=== PATIENT | male | born 1945 | race Caucasian/White ===

== ENCOUNTER 2017-02-05 11:59 | Inpatient (IN) | payer OTHER ==
[2017-02-05] VITALS (9 sets, daily range): BP systolic 147–164; BP diastolic 80–88; PULSE 62–98; TEMP 36.8–37.5; O2SAT 96–99; Ht 185.4 cm; Wt 91.0 kg
[~2017-02-05] VITALS: Ht 185.4 cm; Wt 91.0 kg
[2017-02-05] MEDS ORDERED: ASPI81TA28 PO (12:21)
[2017-02-05] MEDS ORDERED: LOSA1TAB PO (12:21)
[2017-02-05] MEDS ORDERED: PANT40TA PO (12:21)
[2017-02-05] MEDS ORDERED: LIDOCAINE HCL 2% VISC SOLN 20 ML UDC MT STA (12:45)
[2017-02-05] MEDS ORDERED: ALUMINUM/MAGNESIUM SUSP 30 ML UDC PO STA (12:45)
[2017-02-05] MEDS ORDERED: SODIUM CHLORIDE 0.9% 1000ML 1,000 ML IV STA (12:45)
[2017-02-05] MEDS ORDERED: SODIUM CHLORIDE 0.9% 1000ML 250 ML IV STA (12:45)
--- NOTE | 2017-02-05 12:52 | EMERGENCY ROOM VISIT NOTE ---
History Report prepared by Aron: Irlanda Mathur Under the Supervision of: Dr. Nghia Garrido M.D. First contact with patient: 12:23 Chief Complaint: CHEST PAIN Stated Complaint: CHEST PAIN,SWEATING,NUMBNESS Nursing Triage Summary: chest pain substernal and lower back and diaphoresis that started this am that got worse no SOB History of Present Illness The patient is a 71 year old male who presents to the Emergency Room with complaints of constant chest pain beginning 6 hours ago this morning. The patient states that he has GI history and has a lot of burping regularly. He notes that when he woke up this morning he had chest pressure and back pain that was worsened by his burping. He reports that he had diaphoresis and decided to come into the ED. The patient complains of nausea, some abdominal pain, intermittent cough, and tingling in the bilateral hands. He denies any vomiting, changes in bowel movements, fever, chills, trauma, leg pain,and leg swelling. The patient states that he has had normal stress test 7 years ago, endoscopy, and cystoscopy. Source of History: patient Onset: 6 hours ago Position: chest Timing: constant Associated Symptoms: + cough, + nausea, + abdominal pain, No fevers, No chills, No vomiting Note: The patient complains of tingling in the bilateral hands. He denies any changes in bowel movements, trauma, leg pain,and leg swelling. Review of Systems See HPI for pertinent positives & negatives. A total of 10 systems reviewed and were otherwise negative. Past Medical & Surgical Medical Problems: (1) GERD (gastroesophageal reflux disease) (2) Hernia (3) HTN (hypertension) Old medical records were attempted to be reviewed but there are no old records at this hospital. Nurse's notes were reviewed and I agree with. Family History No pertinent family history stated. Social History Smoking Status: Never Smoker Smokeless Tobacco Use: No Alcohol Use: occasionally Drug Use: none Marital Status: Housing Status: lives with significant other Current/Historical Medications Scheduled Aspirin (Aspirin Ec), 81 MG PO DAILY Losartan Potassium (Cozaar), 25 MG PO DAILY Pantoprazole (Protonix), 40 MG PO DAILY Allergies Coded Allergies: Epinephrine (Unverified Allergy, Intermediate, raised HR, 02/05/17) Physical Exam Vital Signs Date Time Temp Pulse Resp B/P (MAP) Pulse Ox O2 Delivery O2 Flow Rate FiO2 8/7/17 16:28 37 66 16 148/77 (100) 97 Room Air 02/05/17 16:20 63 18 146/79 97 02/05/17 15:27 63 18 146/79 97 Room Air 02/05/17 13:40 59 20 140/79 98 Room Air 02/05/17 13:03 127/75 02/05/17 12:59 55 17 97 02/05/17 12:29 55 18 02/05/17 12:24 58 02/05/17 12:08 136/76 02/05/17 12:08 36.6 57 16 136/76 100 Room Air Physical Exam General: Well developed well nourished older male in no acute distress, breathing comfortably on room air. Normal speech HEENT: Normal cephalic atraumatic. Pupils are equal round and reactive to light. Extraocular movements are intact. Oropharynx is pink with moist mucous membranes. No swelling of the mouth lips or tongue. Neck: Supple with a midline trachea. No meningeal signs or stiffness, no JVD or bruits. No Stridor. Chest: Clear to auscultation bilaterally. No wheezes or rhonchi. No increased work of breathing. Heart: regular rate and rhythm. Abdomen: Soft, nondistended without rebound guarding or rigidity. Minimal tenderness in lower chest/epigastric area. Extremities: No cyanosis clubbing or edema. No calf tenderness or assymetry Spine/Back. Non tender to palpation. No CVA tenderness Skin: Good turgor without rashes. Neurologic exam: Cranial nerves two through 12 are intact. Motor and sensation are intact and symmetrical throughout. Medical Decision & Procedures ER Provider Diagnostic Interpretation: Radiology results as stated below per my review and radiologist interpretation: CHEST ONE VIEW PORTABLE FINDINGS: The cardiac and mediastinal contours are normal. There is no evidence of focal pulmonary consolidation. There is no evidence of failure. No pleural effusions are visualized.[ There are minor left basilar atelectatic changes. IMPRESSION: No active disease in the chest. Electronically signed by: Joseph Buckley M.D. 02/05/2017 1:27 PM Dictated Date/Time: 02/05/2017 1:27 PM CHEST COMBO ANGIO DISSECTION FINDINGS: The caliber of the thoracic aorta is normal. There is no evidence of intramural hematoma or thoracic aortic dissection. The size of the heart is at the upper limits of normal. There is no pericardial effusion. No enlarged thoracic lymph nodes are present. There are multiple calcified pulmonary nodules which are benign. There are a few tiny noncalcified pulmonary nodules which are likely benign as well. No pneumothorax or pleural effusion is present. Groundglass opacities reflect atelectasis. Bony thorax is unremarkable. Abdomen and pelvis will be reported separately. IMPRESSION: 1. No thoracic aortic dissection. 2. No acute intrathoracic findings. Electronically signed by: Michoacano Valle M.D. 02/05/2017 3:20 PM Dictated Date/Time: 02/05/2017 3:11 PM ABDOMEN AND PELVIS CTA COMPARISON STUDY: None. FINDINGS: Normal caliber abdominal aorta with no evidence for dissection. The mesenteric and renal arteries are widely patent. The bilateral iliac arteries are normal in caliber. Mild dependent changes seen at the lung bases. Hepatic steatosis. A few scattered hypodense lesions within the liver with the largest in the left hepatic lobe measuring 2 cm. These likely represent cysts. A 2.8 cm heterogeneous enhancing lesion within the splenic dome. The adrenal glands and pancreas are unremarkable. Normal right kidney. 4 mm hypodense lesion within the lower pole the left kidney is too small to characterize. Gallbladder is mildly distended. There is mild pericholecystic inflammatory change. Best seen on the noncontrast imaging there are 2 stones within the neck/cystic duct measuring approximately 4 mm. Therefore, these findings are consistent with acute cholecystitis. No retroperitoneal lymphadenopathy. Normal bladder. The prostate gland is mildly enlarged. Colonic diverticulosis. No bowel wall thickening or obstruction. Normal appendix. IMPRESSION: 1. Normal abdominal aorta. No evidence for dissection. 2. Distended gallbladder with 2 stones at the gallbladder neck/cystic duct. There is associated pericholecystic inflammatory change. Therefore, this is consistent with acute cholecystitis. 3. No bowel wall thickening or obstruction. 4. Colonic diverticulosis. 5. Enlarged prostate. 6. Indeterminate 2.8 cm heterogeneous enhancing lesion within the splenic dome. Electronically signed by: Talha Headley M.D. 02/05/2017 3:21 PM Dictated Date/Time: 02/05/2017 3:11 PM Laboratory Results 02/05/17 12:30 Red Blood Count 5.28, Mean Corpuscular Volume 92.4, Mean Corpuscular Hemoglobin 30.1, Mean Corpuscular Hemoglobin Concent 32.6, Mean Platelet Volume 9.8, Neutrophils (%) (Auto) 86.1, Lymphocytes (%) (Auto) 7.7, Monocytes (%) (Auto) 5.5, Eosinophils (%) (Auto) 0.3, Basophils (%) (Auto) 0.1, Neutrophils # (Auto) 11.92, Lymphocytes # (Auto) 1.06, Monocytes # (Auto) 0.76, Eosinophils # (Auto) 0.04, Basophils # (Auto) 0.02 02/05/17 12:30 Test 02/05/17 12:30 02/05/17 12:58 White Blood Count 13.84 K/uL (4.8-10.8) Red Blood Count 5.28 M/uL (4.7-6.1) Hemoglobin 15.9 g/dL (14.0-18.0) Hematocrit 48.8 % (42-52) Mean Corpuscular Volume 92.4 fL (80-100) Mean Corpuscular Hemoglobin 30.1 pg (25-34) Mean Corpuscular Hemoglobin Concent 32.6 g/dl (32-36) Platelet Count 218 K/uL (130-400) Mean Platelet Volume 9.8 fL (7.4-10.4) Neutrophils (%) (Auto) 86.1 % Lymphocytes (%) (Auto) 7.7 % Monocytes (%) (Auto) 5.5 % Eosinophils (%) (Auto) 0.3 % Basophils (%) (Auto) 0.1 % Neutrophils # (Auto) 11.92 K/uL (1.4-6.5) Lymphocytes # (Auto) 1.06 K/uL (1.2-3.4) Monocytes # (Auto) 0.76 K/uL (0.11-0.59) Eosinophils # (Auto) 0.04 K/uL (0-0.5) Basophils # (Auto) 0.02 K/uL (0-0.2) RDW Standard Deviation 43.8 fL (36.4-46.3) RDW Coefficient of Variation 12.9 % (11.5-14.5) Immature Granulocyte % (Auto) 0.3 % Immature Granulocyte # (Auto) 0.04 K/uL (0.00-0.02) Prothrombin Time 11.5 SECONDS (9.0-12.0) Prothromb Time International Ratio 1.1 (0.9-1.1) Activated Partial Thromboplast Time 26.8 SECONDS (21.0-31.0) Partial Thromboplastin Ratio 1.0 Anion Gap 6.0 mmol/L (3-11) Est Creatinine Clear Calc Drug Dose 86.3 ml/min Estimated GFR () 99.9 Estimated GFR (Non- 86.2 BUN/Creatinine Ratio 18.1 (10-20) Calcium Level 8.3 mg/dl (8.5-10.1) Total Bilirubin 0.5 mg/dl (0.2-1) Direct Bilirubin 0.1 mg/dl (0-0.2) Aspartate Amino Transf (AST/SGOT) 15 U/L (15-37) Alanine Aminotransferase (ALT/SGPT) 20 U/L (12-78) Alkaline Phosphatase 58 U/L (45-117) Total Creatine Kinase 108 U/L (39-308) Creatine Kinase MB 1.7 ng/ml (0.5-3.6) Creatine Kinase MB Ratio 1.6 (0-3.0) Total Protein 6.8 gm/dl (6.4-8.2) Albumin 3.5 gm/dl (3.4-5.0) Lipase 84 U/L (73-393) Bedside Troponin I < 0.030 ng/ml (0-0.045) Laboratory studies as stated above per my review. Medications Administered Medications (Trade) Dose Ordered Sig/Teresa Route Start Time Stop Time Status Last Admin Dose Admin Sodium Chloride 250 ml @ 999 mls/hr Q16M STAT IV 02/05/17 12:45 02/05/17 13:00 DC 02/05/17 13:00 999 MLS/HR Sodium Chloride 1,000 ml @ 100 mls/hr Q10H STAT IV 02/05/17 12:45 02/05/17 22:44 02/05/17 13:00 100 MLS/HR Al Hydroxide/Mg Hydroxide (Maalox Susp) 30 ml NOW STAT PO 02/05/17 12:45 02/05/17 12:48 DC 02/05/17 12:58 30 ML Lidocaine HCl (Viscous Lidocaine 2% Soln) 10 ml NOW STAT MT 02/05/17 12:45 02/05/17 12:48 DC 02/05/17 12:58 10 ML Morphine Sulfate (MoRPHine SULFATE INJ) 4 mg NOW STAT IV 02/05/17 13:43 02/05/17 13:45 DC 02/05/17 13:56 4 MG Ondansetron HCl (Zofran Inj) 4 mg NOW STAT IV 02/05/17 13:43 02/05/17 13:45 DC 02/05/17 13:55 4 MG Piperacillin Sod/ Tazobactam Sod (Zosyn Iv) 4.5 gm NOW STAT IV 02/05/17 15:40 02/05/17 15:42 DC 02/05/17 15:51 4.5 GM Morphine Sulfate (MoRPHine SULFATE INJ) 2 mg NOW STAT IV 02/05/17 15:41 02/05/17 15:42 DC 02/05/17 15:52 2 MG ECG Indication: chest pain Rate (beats per minute): 53 Rhythm: sinus bradycardia Findings: RBBB, no acute ischemic change, no ectopy Comparison ECG Date: no prior available Change: EKG #2: Sinus bradycardia 53 incomplete RBBB, no ischemic changes, no significant changes compared to EKG 1. ED Course 1223: Past medical records reviewed. The patient was evaluated in room C4, and a complete history and physical examination were performed. 1245: Lidocaine HCl 10ml MT, Maalox Susp 30ml PO, Sodium Chloride 1000 ml @ 100 mls/hr IV, Sodium Chloride 250 ml @ 999 mls/hr IV. 1342: I reevaluated and updated the patient. He is having more chest and back pain. He complains of some abdominal pain. 1343: Morphine Sulfate 4mg IV, Zofran Inj 4mg IV. 1418: I reevaluated and updated the patient. 1504: I reevaluated the patient and he is resting comfortably. 1540: Zosyn IV 4.5 gm IV, Morphine Sulfate 2mg IV. 1541: Discussed the patient's case with Dr. Agustin of surgery. The patient will be going to the OR. 1552: Upon reevaluation, the patient is doing well. I discussed the results and treatment plan with the patient. he verbalized agreement of the treatment plan. The patient will be evaluated for further management. Medical Decision Differential diagnosis includes acute coronary, pancreatitis, gallbladder disease, syndrome arrhythmia, PE, musculoskeletal, GERD. This patient comes in as described above. He's been having some lower chest/ epigastric pain. He looks well on exam. EKG was obtained and shows no findings to suggest acute coronary syndrome or significant arrhythmia. Chest x- ray was unremarkable and shows no findings to suggest congestive heart failure, pneumonia, or pneumothorax. IV access was established and blood work was obtained. His troponin is not elevated. He has nothing to suggest liver, gallbladder, or pancreas disease. He has no acute electrolyte or metabolic abnormalities. He was given a GI cocktail. This did not help much. He was given IV morphine and IV Zofran which helped greatly. Given additional IV morphine. His second EKG shows no change compared to EKG #1. His white count is elevated although he is afebrile his abdomen does not seem to be tender he has a negative Monahan sign. I did do a chest and abdomen CT angiography and there is no aortic pathology does however have a distended gallbladder with stones in the neck and findings case with acute cholecystitis. In light of this , he was given Zosyn 4.5 g IV and I consulted Dr. Agustin who promptly came and saw the patient and the ER. He is going to take him to the operating room for cholecystectomy. Medication Reconcilliation Current Medication List: was personally reviewed by me Blood Pressure Screening Patient's blood pressure: Elevated blood pressure Blood pressure disposition: Elevated BP felt to be situational Consults Time Called: 1535 Consulting Physician: Dr. Agustin - Surgery Returned Call: [phone] Discussed the patient's case with Dr. Agustin of surgery. The patient will be going to the OR. Impression Primary Impression: Acute cholecystitis Additional Impression: Epigastric abdominal pain Scribe Attestation The scribe's documentation has been prepared under my direction and personally reviewed by me in its entirety. I confirm that the note above accurately reflects all work, treatment, procedures, and medical decision making performed by me. Departure Information Dispostion Being Evaluated By Surgeon Referrals No Doctor, Assigned (PCP) Patient Instructions My [facility] Problem Qualifiers
[2017-02-05 13:02] LABS: BASO % 0.1 %; BASO ABS # 0.02 K/uL (0-0.2); COMPLETE YES; EOS % 0.3 %; HEMATOCRIT 48.8 % (42-52); IG% 0.3 %; LYMPH % 7.7 %; LYMPH ABS # 1.06 K/uL (1.2-3.4); MEAN CELL VOLUME 92.4 fL (80-100); MEAN CORPUSCULAR HEMOGLOBIN 30.1 pg (25-34); MEAN CORPUSCULAR HGB CONC 32.6 g/dl (32-36); MEAN PLATELET VOLUME 9.8 fL (7.4-10.4); MONO % 5.5 %; NEUT % 86.1 %; PLATELET COUNT 218 K/uL (130-400); RED BLOOD COUNT 5.28 M/uL (4.7-6.1); WHITE BLOOD COUNT 13.84 K/uL (4.8-10.8)
[2017-02-05 13:09] LABS: BUN/CREATININE RATIO 18.1 (10-20); CALCIUM 8.3 mg/dl (8.5-10.1); CREATININE 0.9 mg/dl (0.60-1.40); POTASSIUM 3.6 mmol/L (3.5-5.1)
[2017-02-05 13:15] LABS: INR 1.1 (0.9-1.1); PROTHROMBIN TIME (PATIENT) 11.5 SECONDS (9.0-12.0)
[2017-02-05 13:23] LABS: CKMB/CK RATIO 1.6 (0-3.0)
--- NOTE | 2017-02-05 13:29 | DIAGNOSTIC IMAGING REPORT ---
CHEST ONE VIEW PORTABLE CLINICAL HISTORY: Atypical chest pain COMPARISON STUDY: No previous studies for comparison. FINDINGS: The cardiac and mediastinal contours are normal. There is no evidence of focal pulmonary consolidation. There is no evidence of failure. No pleural effusions are visualized.[ There are minor left basilar atelectatic changes. IMPRESSION: No active disease in the chest. Electronically signed by: Joseph Buckley M.D. 02/05/2017 1:27 PM Dictated Date/Time: 02/05/2017 1:27 PM
[2017-02-05] MEDS ORDERED: ONDANSETRON INJ 2 MG/ML 2 ML VIAL IV STA (13:43)
[2017-02-05] MEDS ORDERED: MoRPHine SULFATE 4 MG/ML 1 ML CARP\\VIAL IV STA (13:43)
[2017-02-05] MEDS ORDERED: OPTIRAY 320 IV PRN (14:15)
--- NOTE | 2017-02-05 15:21 | DIAGNOSTIC IMAGING REPORT ---
CHEST COMBO ANGIO DISSECTION CLINICAL HISTORY: Chest pain, sweating and numbness. Back pain. COMPARISON STUDY: Chest radiograph performed earlier today. TECHNIQUE: Unenhanced and arterial phase imaging of the chest was performed. Injection of 93 cc of Optiray 320 IV was uneventful. Sagittal and coronal reconstructions were viewed as well as maximal intensity projections on an independent 3-D workstation. FINDINGS: The caliber of the thoracic aorta is normal. There is no evidence of intramural hematoma or thoracic aortic dissection. The size of the heart is at the upper limits of normal. There is no pericardial effusion. No enlarged thoracic lymph nodes are present. There are multiple calcified pulmonary nodules which are benign. There are a few tiny noncalcified pulmonary nodules which are likely benign as well. No pneumothorax or pleural effusion is present. Groundglass opacities reflect atelectasis. Bony thorax is unremarkable. Abdomen and pelvis will be reported separately. IMPRESSION: 1. No thoracic aortic dissection. 2. No acute intrathoracic findings. Electronically signed by: Michoacano Valle M.D. 02/05/2017 3:20 PM Dictated Date/Time: 02/05/2017 3:11 PM
--- NOTE | 2017-02-05 15:22 | DIAGNOSTIC IMAGING REPORT ---
ABDOMEN AND PELVIS CTA CT DOSE: 1604.72 mGy.cm HISTORY: TECHNIQUE: Multiaxial CT images of the abdomen and pelvis were performed both before and after the intravenous administration of contrast to evaluate the aorta. Maximal intensity projection images were also obtained. A dose lowering technique was utilized adhering to the principles of ALARA. COMPARISON STUDY: None. FINDINGS: Normal caliber abdominal aorta with no evidence for dissection. The mesenteric and renal arteries are widely patent. The bilateral iliac arteries are normal in caliber. Mild dependent changes seen at the lung bases. Hepatic steatosis. A few scattered hypodense lesions within the liver with the largest in the left hepatic lobe measuring 2 cm. These likely represent cysts. A 2.8 cm heterogeneous enhancing lesion within the splenic dome. The adrenal glands and pancreas are unremarkable. Normal right kidney. 4 mm hypodense lesion within the lower pole the left kidney is too small to characterize. Gallbladder is mildly distended. There is mild pericholecystic inflammatory change. Best seen on the noncontrast imaging there are 2 stones within the neck/cystic duct measuring approximately 4 mm. Therefore, these findings are consistent with acute cholecystitis. No retroperitoneal lymphadenopathy. Normal bladder. The prostate gland is mildly enlarged. Colonic diverticulosis. No bowel wall thickening or obstruction. Normal appendix. IMPRESSION: 1. Normal abdominal aorta. No evidence for dissection. 2. Distended gallbladder with 2 stones at the gallbladder neck/cystic duct. There is associated pericholecystic inflammatory change. Therefore, this is consistent with acute cholecystitis. 3. No bowel wall thickening or obstruction. 4. Colonic diverticulosis. 5. Enlarged prostate. 6. Indeterminate 2.8 cm heterogeneous enhancing lesion within the splenic dome. Electronically signed by: Talha Headley M.D. 02/05/2017 3:21 PM Dictated Date/Time: 02/05/2017 3:11 PM
[2017-02-05] MEDS ORDERED: PIPERACILLIN/TAZOBACTAM 4.5 GM/100ML D5W IV STA (15:40)
[2017-02-05] MEDS ORDERED: MoRPHine SULFATE 2 MG/ML CARP IV STA (15:41)
--- NOTE | 2017-02-05 16:03 | History and Physical ---
History & Physical Date Feb 05, 2017. Chief Complaint abdominal pain History of Present Illness The patient is a 71 year old male with complaints of Past Medical/Surgical History Medical Problems: (1) GERD (gastroesophageal reflux disease) (2) Hernia (3) HTN (hypertension) Additional History Hepatic Disease: No Endocrine Disorder: No Kidney Disease: No Hypertension: Yes Heart Disease: No Bleeding Tendencies: No Allergies Coded Allergies: Epinephrine (Unverified Allergy, Intermediate, raised HR, 02/05/17) Home Medications Scheduled Aspirin (Aspirin Ec), 81 MG PO DAILY Losartan Potassium (Cozaar), 25 MG PO DAILY Pantoprazole (Protonix), 40 MG PO DAILY Physical Examination Skin: warm/dry, no rash Eyes: sclerae normal Head: atraumatic Neck: supple Respiratory/Chest: no respiratory distress Cardiovascular: regular rate, rhythm Abdomen / GI: + pertinent finding (upper abd tenderness, soft) Extremities: normal inspection Diagnosis acute cholecystitis Plan of Treatment for laparoscopic cholecystectomy- possible open operation for today
[2017-02-05] MEDS ORDERED: BUPIVACAINE 0.5 % 5 MG/1 ML MPF 30ML VIAL ONE (16:08)
[2017-02-05] MEDS ORDERED: ROCURONIUM BROMID 50MG/5ML SYR ONE (16:24)
[2017-02-05] MEDS ORDERED: PROPOFOL IV EMULSION 10 MG/ML 20 ML VIAL IV ONE (16:25)
[2017-02-05] MEDS ORDERED: LIDOCAINE HCL 2% 2 ML VIAL (20MG/ML) ONE (16:25)
[2017-02-05] MEDS ORDERED: ONDANSETRON INJ 2 MG/ML 2 ML VIAL ONE (16:25)
[2017-02-05] MEDS ORDERED: FENTANYL CITRATE INJ 50 MCG/1 ML 2 ML VIAL ONE (16:25)
[2017-02-05] MEDS ORDERED: MEPERIDINE HCL 25 MG/ML CARP IV PRN (16:30)
[2017-02-05] MEDS ORDERED: ATROPINE SULFATE 0.1 MG/ML 5ML SYR IV PRN (16:30)
[2017-02-05] MEDS ORDERED: ONDANSETRON INJ 2 MG/ML 2 ML VIAL IV PRN ×2 (16:30→17:45)
[2017-02-05] MEDS ORDERED: FENTANYL CITRATE INJ 50 MCG/1 ML 2 ML VIAL IV PRN (16:30)
[2017-02-05] MEDS ORDERED: LABETALOL HCL IV 5 MG/ML 20ML IV PRN (16:30)
[2017-02-05] MEDS ORDERED: EpHEDrine SULFATE INJ 50 MG/ML AMP IV PRN (16:30)
[2017-02-05] MEDS ORDERED: HYDROmorphone INJ 1 MG/ML SYR IV PRN ×2 (16:30→17:45)
[2017-02-05] MEDS ORDERED: DEXAMETHASONE SOD INJ 4 MG/ML VIAL ONE (16:59)
[2017-02-05] MEDS ORDERED: SUCCINYLCHOLINE CHLORIDE 20 MG/ML 10 ML VIAL IV ONE (16:59)
[2017-02-05] MEDS ORDERED: GLYCOPYRROLATE INJ 0.2 MG/ML VIAL ONE ×2 (17:12→17:21)
[2017-02-05] MEDS ORDERED: NEOSTIGMINE METHYLSULFATE 5 MG/5 ML SYR ONE (17:21)
[2017-02-05] MEDS ORDERED: LACTATED RINGER'S 1000ML 1,000 ML IV SCH (17:44)
--- NOTE | 2017-02-05 17:44 | [facility] Operative Report ---
Operative Report Operative Date Feb 05, 2017. Pre-Operative Diagnosis Acute hemorrhagic cholecystitis Post-Operative Diagnosis Same as preoperative diagnosis, hydrops Procedure(s) Performed Laparoscopic cholecystectomy Surgeon Dr. Al Agustin Insurance Inspector Surgeon(s) Jamie Delvalle PA-C Estimated Blood Loss 20 mL Findings severe gb inflammation, clear bile Specimens Permanent specimens A: Gallbladder and contents Drains #[id number] CHRISTIANO Anesthesia gen Complication(s) None Disposition Recovery Room / PACU I attest to the content of the Intraoperative Record and any orders documented therein. Any exceptions are noted below.
[2017-02-05] MEDS ORDERED: HYDROmorphone INJ 0.5 MG/0.5 ML SYR IV PRN (17:45)
[2017-02-05] MEDS ORDERED: HYDROCODONE/ACETAMOPHEN 5/325MG TAB PO PRN (17:45)
[2017-02-05] MEDS ORDERED: PROMETHAZINE HCL INJ 25 MG in SODIUM CHLORIDE 0.9% 50ML 50 ML IV PRN (17:45)
--- NOTE | 2017-02-05 18:31 | OPERATIVE REPORT ---
DATE OF OPERATION: 02/05/2017 NAME OF OPERATION: Laparoscopic cholecystectomy. PREOPERATIVE DIAGNOSIS: Acute cholecystitis. POSTOPERATIVE DIAGNOSES: Same with hemorrhagic cholecystitis and hydrops. STAFF SURGEON: Dr. Al Agustin. KOSHER SEALER: Jamie Delvalle PA-C ANESTHESIA: General. DESCRIPTION OF PROCEDURE: The patient was brought into the operating room and placed on the operating table in the supine position. His abdomen was prepped and draped in the usual fashion. 0.5% Marcaine was used to anesthetize all incisions. Incision was made below the umbilicus, carrying dissection down to the fascia, placing a Veress needle, producing pneumoperitoneum, initially placing a 5-mm port and then an 11-mm port at this level and then under visualization, placing three 5-mm ports, 1 cephalad and 2 laterally. The patient did have some omentum adherent to the abdominal wall cephalad to the umbilical port, but we were able to work around this. The gallbladder was very distended. The tip was hemorrhagic. It was aspirated of bile, which was clear, indicating hydrops and obstruction. The patient has significant edema of the gallbladder. Dissection was carried out at the dustin hepatis, identifying the cystic duct and cystic artery, which had 2 branches. These were all clipped and transected. The gallbladder then dissected away from the liver bed in the usual fashion, showing severe edema in the posterior wall. The gallbladder was placed in an Endobag. I did use a small piece of Surgicel in the liver bed and then placed the #15 round Storm-Parson drain through the lateral 5-mm port site into the subhepatic space, secured to the skin using 3-0 nylon suture. Using a 5-mm camera placed through the upper 5-mm port site, we were able to remove the bag through the umbilical site under visualization. We did have to enlarge the fascial defect because of the large gallbladder and stones. Fascial defect closed using interrupted 0 Vicryl suture. The skin reapproximated at all incisions using 4-0 nylon suture. Drain placed to suction bulb. The patient transferred to recovery room in stable condition. I attest to the content of the Intraoperative Record and any orders documented therein. Any exception s are noted below.
--- NOTE | 2017-02-05 18:44 | Anesthesiology Progress Note ---
Anesthesia Post Op Note Date & Time Feb 05, 2017 at 18:44 Vital Signs Pain Intensity: 0 Vital Signs Past 12 Hours Date Time Temp Pulse Resp B/P (MAP) Pulse Ox O2 Delivery O2 Flow Rate FiO2 02/05/17 18:30 36.8 62 12 139/79 98 Nasal Cannula 2 02/05/17 18:20 68 12 142/73 99 Nasal Cannula 2 02/05/17 18:10 68 12 142/71 100 Oxymask 10 02/05/17 18:00 88 14 132/85 100 Oxymask 10 02/05/17 17:54 36.4 88 14 142/77 98 Oxymask 10 02/05/17 16:28 37 66 16 148/77 (100) 97 Room Air 02/05/17 16:20 63 18 146/79 97 02/05/17 15:27 63 18 146/79 97 Room Air 02/05/17 13:40 59 20 140/79 98 Room Air 02/05/17 13:03 127/75 02/05/17 12:59 55 17 97 02/05/17 12:29 55 18 02/05/17 12:24 58 02/05/17 12:08 136/76 02/05/17 12:08 36.6 57 16 136/76 100 Room Air Notes Mental Status: alert / awake / arousable, participated in evaluation Pt Amnestic to Procedure: Yes Nausea / Vomiting: adequately controlled Pain: adequately controlled Airway Patency, RR, SpO2: stable & adequate BP & HR: stable & adequate Hydration State: stable & adequate Anesthetic Complications: no major complications apparent
[2017-02-05] MEDS ORDERED: PROMETHAZINE HCL INJ 12.5 MG in SODIUM CHLORIDE 0.9% 50ML 50 ML IV PRN (19:15)
--- NOTE | 2017-02-05 20:17 | Medical Consult ---
Consultation Date of Consultation: Feb 05, 2017. Attending Physician: Al Agustin M.D. Reason for Consultation: Post-op HTN History of Present Illness Mr Espinosa is a 71 yo M day 0 s/p lap brittani by Dr Agustin. Medicine was consulted for hypertension. He reports he has labile BPs, and has been on Losartan for years. He was previously on 50mg and is now on 25mg daily. He checks his BP at home and it is usually in the 120's. Earlier in the day, he did have severe pain which made his BP go up, but once that was treated it came down to 130's systolic. Past Medical/Surgical History Medical Problems: (1) Acute cholecystitis Status: Acute (2) Epigastric abdominal pain Status: Acute PSHx: Lap cholecystectomy Family History No pertinent FHx Social History Smoking Status: Former Smoker Smokeless Tobacco Use: No Drug Use: none Marital Status: Housing Status: lives with significant other Allergies Coded Allergies: Epinephrine (Unverified Allergy, Intermediate, raised HR, 02/05/17) Home Medications Losartan 25 mg by mouth daily Pantoprazole 40 mg by mouth daily Aspirin 81 mg by mouth daily Current Inpatient Medications Current Inpatient Medications Medications (Trade) Dose Ordered Sig/Teresa Route Start Time Stop Time Status Last Admin Dose Admin Ioversol (Optiray 320) 100 ml UD PRN IV 02/05/17 14:15 02/09/17 14:14 Fentanyl Citrate (Fentanyl Inj) 50 mcg Q5M PRN IV 02/05/17 16:30 02/05/17 21:30 Hydromorphone HCl (Dilaudid Inj) 0.5 mg Q5M PRN IV 02/05/17 16:30 02/05/17 21:30 Meperidine HCl (Demerol Inj) 25 mg Q5M PRN IV 02/05/17 16:30 02/05/17 21:30 Ondansetron HCl (Zofran Inj) 4 mg ONE PRN IV 02/05/17 16:30 02/05/17 21:30 Labetalol HCl (Normodyne IV) 5 mg Q5M PRN IV 02/05/17 16:30 02/05/17 21:30 Ephedrine Sulfate (EpHEDrine SULFATE INJ) 5 mg Q5M PRN IV 02/05/17 16:30 02/05/17 21:30 Atropine Sulfate (Atropine Sulfate 0.1MG/Ml Inj) 0.5 mg Q1M PRN IV 02/05/17 16:30 02/05/17 21:30 Losartan Potassium (coZAAR TAB) 25 mg DAILY PO 02/06/17 09:00 03/08/17 08:59 Pantoprazole Sodium (Protonix Tab) 40 mg DAILY PO 02/06/17 09:00 03/08/17 08:59 Lactated Ringer's 1,000 ml @ 75 mls/hr [id number] IV 02/05/17 17:44 03/07/17 17:43 02/05/17 19:44 75 MLS/HR Ampicillin Sodium/ Sulbactam Sodium 1500 mg/Sodium Chloride 104 ml @ 200 mls/hr Q6H IV 02/05/17 20:00 02/15/17 19:59 Hydromorphone HCl (Dilaudid Inj) 0.5 mg Q3H PRN IV 02/05/17 17:45 02/19/17 17:44 Hydromorphone HCl (Dilaudid Inj) 1 mg Q3H PRN IV 02/05/17 17:45 02/19/17 17:44 Acetaminophen/ Hydrocodone Bitart ([place] 5/325 Tab) 1 tab Q4H PRN PO 02/05/17 17:45 02/19/17 17:44 Acetaminophen/ Hydrocodone Bitart ([place] 5/325 Tab) 2 tab Q4H PRN PO 02/05/17 17:45 02/19/17 17:44 Promethazine HCl 25 mg/Sodium Chloride 51 ml @ 204 mls/hr Q6H PRN IV 02/05/17 17:45 03/07/17 17:44 Ondansetron HCl (Zofran Inj) 4 mg Q6H PRN IV 02/05/17 17:45 03/07/17 17:44 Promethazine HCl 12.5 mg/Sodium Chloride 50.5 ml @ 204 mls/hr Q6H PRN IV 02/05/17 19:15 03/07/17 19:14 Review of Systems See HPI for pertinent positives & negatives. A total of 10 systems reviewed and were otherwise negative. Physical Exam Date Time Temp Pulse Resp B/P (MAP) Pulse Ox O2 Delivery O2 Flow Rate FiO2 02/05/17 19:45 36.8 83 16 164/80 (108) 97 Nasal Cannula 2.0 02/05/17 19:20 36.8 69 16 155/84 98 Nasal Cannula 2.0 02/05/17 19:16 36.8 69 16 155/84 (107) 98 Nasal Cannula 2.0 02/05/17 19:10 98 Nasal Cannula 2.0 02/05/17 18:45 37.1 62 16 159/80 (106) 98 Nasal Cannula 2.0 02/05/17 18:30 36.8 62 12 139/79 98 Nasal Cannula 2 02/05/17 18:20 68 12 142/73 99 Nasal Cannula 2 02/05/17 18:10 68 12 142/71 100 Oxymask 10 02/05/17 18:00 88 14 132/85 100 Oxymask 10 02/05/17 17:54 36.4 88 14 142/77 98 Oxymask 10 02/05/17 16:28 37 66 16 148/77 (100) 97 Room Air 02/05/17 16:20 63 18 146/79 97 02/05/17 15:27 63 18 146/79 97 Room Air 02/05/17 13:40 59 20 140/79 98 Room Air 02/05/17 13:03 127/75 02/05/17 12:59 55 17 97 02/05/17 12:29 55 18 02/05/17 12:24 58 02/05/17 12:08 136/76 02/05/17 12:08 36.6 57 16 136/76 100 Room Air GENERAL: Awake, alert, well-appearing, in no acute distress HENT: Normocephalic, atraumatic. Oropharynx unremarkable. EYES: Normal conjunctiva. Sclera non-icteric. NECK: Supple. No nuchal rigidity. FROM. No JVD. RESPIRATORY: Clear to auscultation. CARDIAC: Regular rate, normal rhythm. Extremities warm and well perfused. Pulses equal. ABDOMEN: Soft, non-distended. No tenderness to palpation. No rebound or guarding. No masses. MUSCULOSKELETAL: Chest examination reveals no tenderness. The back is symmetrical on inspection without obvious abnormality. LOWER EXTREMITIES: Calves are equal size bilaterally and non-tender. No edema. No discoloration. NEURO: Normal sensorium. No sensory or motor deficits noted. SKIN: No rash or jaundice noted. Laboratory Results Last 24 Hours Test 02/05/17 12:30 02/05/17 12:58 White Blood Count 13.84 K/uL Red Blood Count 5.28 M/uL Hemoglobin 15.9 g/dL Hematocrit 48.8 % Mean Corpuscular Volume 92.4 fL Mean Corpuscular Hemoglobin 30.1 pg Mean Corpuscular Hemoglobin Concent 32.6 g/dl Platelet Count 218 K/uL Mean Platelet Volume 9.8 fL Neutrophils (%) (Auto) 86.1 % Lymphocytes (%) (Auto) 7.7 % Monocytes (%) (Auto) 5.5 % Eosinophils (%) (Auto) 0.3 % Basophils (%) (Auto) 0.1 % Neutrophils # (Auto) 11.92 K/uL Lymphocytes # (Auto) 1.06 K/uL Monocytes # (Auto) 0.76 K/uL Eosinophils # (Auto) 0.04 K/uL Basophils # (Auto) 0.02 K/uL RDW Standard Deviation 43.8 fL RDW Coefficient of Variation 12.9 % Immature Granulocyte % (Auto) 0.3 % Immature Granulocyte # (Auto) 0.04 K/uL Prothrombin Time 11.5 SECONDS Prothromb Time International Ratio 1.1 Activated Partial Thromboplast Time 26.8 SECONDS Partial Thromboplastin Ratio 1.0 Sodium Level 140 mmol/L Potassium Level 3.6 mmol/L Chloride Level 105 mmol/L Carbon Dioxide Level 29 mmol/L Anion Gap 6.0 mmol/L Blood Urea Nitrogen 16 mg/dl Creatinine 0.90 mg/dl Est Creatinine Clear Calc Drug Dose 86.3 ml/min Estimated GFR () 99.9 Estimated GFR (Non- 86.2 BUN/Creatinine Ratio 18.1 Random Glucose 126 mg/dl Calcium Level 8.3 mg/dl Total Bilirubin 0.5 mg/dl Direct Bilirubin 0.1 mg/dl Aspartate Amino Transf (AST/SGOT) 15 U/L Alanine Aminotransferase (ALT/SGPT) 20 U/L Alkaline Phosphatase 58 U/L Total Creatine Kinase 108 U/L Creatine Kinase MB 1.7 ng/ml Creatine Kinase MB Ratio 1.6 Total Protein 6.8 gm/dl Albumin 3.5 gm/dl Lipase 84 U/L Bedside Troponin I < 0.030 ng/ml Assessment & Plan 71 yo M with hx of hypertension, day 0 s/p lap cholecystectomy. Recommendations: - Agree w/restarting his Cozaar 25mg tomorrow morning, though if his BP goes up throughout the night, we can restart it now. He is tolerating PO. - If his BP does become elevated, it could also be likely due to pain, so would re-assess that prior to empirically treating his blood pressure. Thank you for this consult, we will continue to monitor. Attending Addendum: I have physically seen and examined this patient, have supervised the medical residents activities, and agree with the H&P as noted above with the following exceptions as noted. The patient is awake, well-developed and adequately nourished, alert and oriented 3, normocephalic and atraumatic, lying in bed and in no acute distress. HEENT--PERRL, EOMI, mucous membranes and oropharynx normal. Neck--supple, no JVD or bruits, thyroid normal, trachea midline, no adenopathy. Heart--normal S1 and S2, no extra beats, no murmurs, rubs or gallops. Lungs--clear bilaterally with good air movement, no respiratory distress, no accessory muscle use. Abdomen--normal bowel sounds and soft, nontender. Bladder tip palpable and moderately distended. No hernias or masses, no organomegaly. Extremities--no cyanosis, clubbing or edema. There are good distal pulses b/l. Dermatologic--normal skin turgor, normal color, warm and dry, no abnormal lymph nodes, no rash. Neurologic--cranial nerves II through XII grossly intact, motor and sensory examination normal. Rheumatologic--normal range of motion, nontender, muscles and joints. Psychiatric--normal affect. Assessment and Plan: 1. Patient is seen status post laparoscopic cholecystectomy and medically stable. Next 2. Hypertension--continue losartan 25 mg by mouth daily with hold parameters and aspirin 81 mg by mouth daily for now. Next 3. GERD--continue pantoprazole 40 mg by mouth daily. 4. Splenic dome lesion--would recommend repeat CT as an outpatient in 3 months for follow-up. 5. BPH/microscopic hematuria--bladder tip is palpable on examination and patient has frequent urination. We'll therefore stop IV fluids. Discussed minimization of caffeine later products in the outpatient setting. He does have chocolate of these daily at home. We'll check a PSA. He likely would benefit from starting a medication such as tamsulosin 0.4 mg by mouth at bedtime, but will leave that to his outpatient physician. He reports these recently moved here from [place], and was told that he had microscopic blood in his urine. He is on aspirin on a primary prevention basis without any significant cardiovascular or cerebrovascular disease in the family. He does follow with urology as well. On a risk-benefit ratio basis, he could likely do a trial off of aspirin and assess hematuria at that time as an outpatient. Resident Tracking Resident Involvement: Resident Care Provided Care Provided: Adult [facility] Medicine
[2017-02-05] MEDS: AMPICILLIN/SULBACTAM SOD INJ 1,500 MG in SODIUM CHLORIDE 0.9% 100ML 100 ML IV SCH (20:21)
[2017-02-05] MEDS ORDERED: NURSING VERBAL MED ORDER ONE (22:15)
[2017-02-06] VITALS (8 sets, daily range): BP systolic 111–148; BP diastolic 65–78; PULSE 59–86; TEMP 36.9–37.5; O2SAT 94–98
[2017-02-06] MEDS ORDERED: LIDOCAINE HCL 2% JELLY 30 ML TUBE EXT PRN (01:00)
[2017-02-06] MEDS ORDERED: NURSING DECISION MEDICATION ORDER SCH (01:00)
[2017-02-06] MEDS: AMPICILLIN/SULBACTAM SOD INJ 1,500 MG in SODIUM CHLORIDE 0.9% 100ML 100 ML IV SCH ×4 (01:26→19:59)
[2017-02-06] MEDS ORDERED: IBUPROFEN 600 MG TAB PO PRN (06:00)
[2017-02-06 06:01] LABS: HEMATOCRIT 46.9 % (42-52); MEAN CELL VOLUME 92.3 fL (80-100); MEAN CORPUSCULAR HEMOGLOBIN 31.1 pg (25-34); MEAN CORPUSCULAR HGB CONC 33.7 g/dl (32-36); MEAN PLATELET VOLUME 10.1 fL (7.4-10.4); PLATELET COUNT 207 K/uL (130-400); RED BLOOD COUNT 5.08 M/uL (4.7-6.1); WHITE BLOOD COUNT 22.74 K/uL (4.8-10.8)
--- NOTE | 2017-02-06 06:13 | Surgery Progress Note ---
Surgery Progress Note Date of Service Feb 06, 2017. Subjective + feeling well had to str cath but now seems to be voiding on own Objective Vital Signs: Date Time Temp Pulse Resp B/P (MAP) Pulse Ox O2 Delivery O2 Flow Rate FiO2 02/06/17 03:10 37.3 86 16 132/69 (90) 98 Nasal Cannula 2.0 02/05/17 23:45 Nasal Cannula 2.0 02/05/17 23:00 37.3 94 18 162/88 (112) 96 Nasal Cannula 2.0 02/05/17 21:45 37.5 98 16 147/82 (103) 97 Nasal Cannula 2.0 02/05/17 20:45 37.0 96 18 160/82 (108) 99 Nasal Cannula 2.0 02/05/17 20:35 97 Nasal Cannula 2.0 02/05/17 19:45 36.8 83 16 164/80 (108) 97 Nasal Cannula 2.0 02/05/17 19:20 36.8 69 16 155/84 98 Nasal Cannula 2.0 02/05/17 19:16 36.8 69 16 155/84 (107) 98 Nasal Cannula 2.0 02/05/17 19:10 98 Nasal Cannula 2.0 02/05/17 18:45 37.1 62 16 159/80 (106) 98 Nasal Cannula 2.0 02/05/17 18:30 36.8 62 12 139/79 98 Nasal Cannula 2 02/05/17 18:20 68 12 142/73 99 Nasal Cannula 2 02/05/17 18:10 68 12 142/71 100 Oxymask 10 02/05/17 18:00 88 14 132/85 100 Oxymask 10 02/05/17 17:54 36.4 88 14 142/77 98 Oxymask 10 02/05/17 16:28 37 66 16 148/77 (100) 97 Room Air 02/05/17 16:20 63 18 146/79 97 02/05/17 15:27 63 18 146/79 97 Room Air 02/05/17 13:40 59 20 140/79 98 Room Air 02/05/17 13:03 127/75 02/05/17 12:59 55 17 97 02/05/17 12:29 55 18 02/05/17 12:24 58 02/05/17 12:08 136/76 02/05/17 12:08 36.6 57 16 136/76 100 Room Air General Appearance: no apparent distress Respiratory/Chest: no respiratory distress Abdomen: soft Incision(s): intact, drainage (CHRISTIANO in place) Laboratory Results: Results Past 24 Hours Test 02/05/17 12:30 02/05/17 12:58 02/06/17 05:05 Range/Units White Blood Count 13.84 22.74 4.8-10.8 K/uL Red Blood Count 5.28 5.08 4.7-6.1 M/uL Hemoglobin 15.9 15.8 14.0-18.0 g/dL Hematocrit 48.8 46.9 42-52 % Mean Corpuscular Volume 92.4 92.3 80-100 fL Mean Corpuscular Hemoglobin 30.1 31.1 25-34 pg Mean Corpuscular Hemoglobin Concent 32.6 33.7 32-36 g/dl Platelet Count 218 207 130-400 K/uL Mean Platelet Volume 9.8 10.1 7.4-10.4 fL Neutrophils (%) (Auto) 86.1 % Lymphocytes (%) (Auto) 7.7 % Monocytes (%) (Auto) 5.5 % Eosinophils (%) (Auto) 0.3 % Basophils (%) (Auto) 0.1 % Neutrophils # (Auto) 11.92 1.4-6.5 K/uL Lymphocytes # (Auto) 1.06 1.2-3.4 K/uL Monocytes # (Auto) 0.76 0.11-0.59 K/uL Eosinophils # (Auto) 0.04 0-0.5 K/uL Basophils # (Auto) 0.02 0-0.2 K/uL RDW Standard Deviation 43.8 44.1 36.4-46.3 fL RDW Coefficient of Variation 12.9 13.0 11.5-14.5 % Immature Granulocyte % (Auto) 0.3 % Immature Granulocyte # (Auto) 0.04 0.00-0.02 K/uL Prothrombin Time 11.5 9.0-12.0 SECONDS Prothromb Time International Ratio 1.1 0.9-1.1 Activated Partial Thromboplast Time 26.8 21.0-31.0 SECONDS Partial Thromboplastin Ratio 1.0 Sodium Level 140 136-145 mmol/L Potassium Level 3.6 3.5-5.1 mmol/L Chloride Level 105 98-107 mmol/L Carbon Dioxide Level 29 21-32 mmol/L Anion Gap 6.0 3-11 mmol/L Blood Urea Nitrogen 16 7-18 mg/dl Creatinine 0.90 0.60-1.40 mg/dl Est Creatinine Clear Calc Drug Dose 86.3 ml/min Estimated GFR () 99.9 Estimated GFR (Non- 86.2 BUN/Creatinine Ratio 18.1 10-20 Random Glucose 126 70-99 mg/dl Calcium Level 8.3 8.5-10.1 mg/dl Total Bilirubin 0.5 0.2-1 mg/dl Direct Bilirubin 0.1 0-0.2 mg/dl Aspartate Amino Transf (AST/SGOT) 15 15-37 U/L Alanine Aminotransferase (ALT/SGPT) 20 12-78 U/L Alkaline Phosphatase 58 45-117 U/L Total Creatine Kinase 108 39-308 U/L Creatine Kinase MB 1.7 0.5-3.6 ng/ml Creatine Kinase MB Ratio 1.6 0-3.0 Total Protein 6.8 6.4-8.2 gm/dl Albumin 3.5 3.4-5.0 gm/dl Lipase 84 73-393 U/L Bedside Troponin I < 0.030 0-0.045 ng/ml Assessment & Plan 02/06/17- s/p lap brittani- hydrops, has CHRISTIANO drain in place monitor urine output , cont IV atbx, probable d/c tomorrow
[2017-02-06 06:39] LABS: ALB/GLOB RATIO 0.9 (0.9-2); BUN/CREATININE RATIO 14.4 (10-20); CALCIUM 8.5 mg/dl (8.5-10.1); CREATININE 0.91 mg/dl (0.60-1.40); POTASSIUM 3.6 mmol/L (3.5-5.1)
--- NOTE | 2017-02-06 08:45 | Family Medicine Progress Note ---
Progress Note Date of Service Feb 06, 2017. Subjective Pt evaluation today including: conversation w/ patient, physical exam, chart review, lab review The patient was seen and examined at bedside. Cholecystectomy Post Op Day #1. Feeling much better than yesterday. Drain in place draining a small amount of blood. Pt needed a straight cath due to retention and has voided 3 times since. Afebrile with low grade temp overnight. Constitutional: No fever, No chills, No sweats Respiratory: No cough, No sputum Cardiovascular: No chest pain Abdomen: No pain, No nausea, No vomiting, No diarrhea Male : + incontinence ((resolved)), No dysuria, No urinary frequency Neurologic: No memory loss, No weakness, No numbness/tingling Psychiatric: No depression symptoms Skin: No rash Objective Physical Exam General Appearance: WD/WN, no apparent distress Neck: no adenopathy Respiratory/Chest: chest non-tender, lungs clear, normal breath sounds, no respiratory distress, no accessory muscle use Cardiovascular: regular rate, rhythm, no edema, no gallop, no JVD, no murmur Abdomen: non tender, soft, no organomegaly, no pulsatile mass, + pertinent finding (Drain in place over RUQ, non tender surgical site, no signs of acute abdomen (no rebound)) Extremities: normal range of motion, non-tender, normal inspection, no pedal edema, no calf tenderness Neurologic/Psychiatric: alert, normal mood/affect, oriented x 3 Assessment and Plan 71M with a PMHx of GERD, hernia and HTN p/w acute cholecystitis. s/p Cholecystectomy by Dr. Agustin. Post Op Day #1. Cholecystectomy - Doing well, drain in place draining scant amounts of blood, no signs of acute abdomen. - continue Unasyn 1.5g TID IV - will continue to hold home med [id number] MG PO DAILY JARAMILLO - Ibuprofen 600mg TID HTN - Continue Losartan Potassium (Cozaar), 25 MG PO DAILY GERD - continue Pantoprazole (Protonix), 40 MG PO DAILY DVT Proph SCDS FULL CODE Resident Physician Supervision Note: I interviewed and examined the patient. Discussed with Dr. Unger and agree with findings and plan as documented in the note. Any exceptions or clarifications are listed here: None Documented By: Canelo Tillman feeling good no complaints. vitals noted nad breathing unlabored no pallor or icterus HTN - stable, meds as above. otherwise as above Resident Involvement: Resident Care Provided Care Provided: Adult [facility] Medicine
[2017-02-06] MEDS: PANTOprazole SOD 40 MG TAB PO SCH (09:01)
[2017-02-06] MEDS: LOSARTAN POTASSIUM 25 MG TAB PO SCH (09:02)
[2017-02-06] MEDS: DOCUSATE SODIUM/SENNA 50/8.6MG TAB PO SCH ×2 (09:02→20:55)
[2017-02-06] MEDS ORDERED: ARTIFICIAL TEARS OP OINT 3.5 GM TUBE OP PRN (09:15)
--- NOTE | 2017-02-06 10:56 | Anesthesiology Progress Note ---
Anesthesia Post Op Note Date & Time Feb 06, 2017 at 10:55 Vital Signs Pain Intensity: 4.0 Vital Signs Past 12 Hours Date Time Temp Pulse Resp B/P (MAP) Pulse Ox O2 Delivery O2 Flow Rate FiO2 02/06/17 08:43 97 Room Air 02/06/17 07:59 37.2 76 16 116/70 (85) 97 Room Air 02/06/17 07:40 Room Air 02/06/17 03:10 37.3 86 16 132/69 (90) 98 Nasal Cannula 2.0 02/05/17 23:45 Nasal Cannula 2.0 02/05/17 23:00 37.3 94 18 162/88 (112) 96 Nasal Cannula 2.0 Notes Mental Status: alert / awake / arousable, participated in evaluation Pt Amnestic to Procedure: Yes Nausea / Vomiting: adequately controlled Pain: adequately controlled Airway Patency, RR, SpO2: stable & adequate BP & HR: stable & adequate Hydration State: stable & adequate Anesthetic Complications: no major complications apparent
[2017-02-06] MEDS: HYDROCODONE/ACETAMOPHEN 5/325MG TAB PO PRN (19:06)
[2017-02-07] MEDS: AMPICILLIN/SULBACTAM SOD INJ 1,500 MG in SODIUM CHLORIDE 0.9% 100ML 100 ML IV SCH ×2 (01:55→07:36)
[2017-02-07] MEDS: HYDROCODONE/ACETAMOPHEN 5/325MG TAB PO PRN (01:58)
[2017-02-07] MEDS ORDERED: HYDR-5688 PO (06:14)
--- NOTE | 2017-02-07 06:16 | Discharge Instructions ---
Discharge Instructions Date of Service Feb 07, 2017. Admission Reason for Admission: Acute Cholecystitis Discharge Discharge Diagnosis / Problem: acute cholecystitis Discharge Goals Goal(s): Decrease discomfort, Improve function, Improve disease control Activity Recommendations Activity Limitations: as noted below Lifting Limitations: no more than 25 pounds (for 3 weeks) Exercise/Sports Limitations: until after follow-up appointment May Resume Sexual Activity: when tolerated Shower/Bathe: no limitations (may shower, no bath for 1 week) Driving or Machine Use: resume 3 days after discharge SPECIAL CARE INSTRUCTIONS: * Cover incisions and change daily for comfort/drainage. * Empty drain 2-3 times per day and record. * May use ibuprofen for pain as tolerated. * Expect some swelling and bruising. Call your doctor if: * Temperature above 101 degrees * Pain not relieved by pain medicine ordered * There is increased drainage or redness from any incision * You have any unanswered questions or concerns [phone]. FOLLOW UP VISIT: If not already scheduled, please call the office for a follow-up visit. for this 02/09- drain removal OFFICE PHONE NUMBER: Dr. Agustin Office . Current Hospital Diet Patient's current hospital diet: Regular Diet Discharge Diet Recommended Diet: Regular Diet Procedures Procedures Performed: Laparoscopic cholecystectomy Pending Studies Studies pending at discharge: no Medical Emergencies . Who to Call and When: Medical Emergencies: If at any time you feel your situation is an emergency, please call 911 immediately. . Non-Emergent Contact Non-Emergency issues call your: Primary Care Provider, Surgeon . "Provider Documentation" section prepared by Al Agustin. . VTE Core Measure Inpt VTE Proph given/why not?: SCD's
[2017-02-07] MEDS ORDERED: AMOX875T PO (06:40)
[2017-02-07 07:19] VITALS: BP 135/81; PULSE 56; TEMP 37; O2SAT 95
[2017-02-07] MEDS: DOCUSATE SODIUM/SENNA 50/8.6MG TAB PO SCH (07:36)
[2017-02-07] MEDS: LOSARTAN POTASSIUM 25 MG TAB PO SCH (07:36)
[2017-02-07] MEDS: PANTOprazole SOD 40 MG TAB PO SCH (07:36)
--- NOTE | 2017-02-07 07:55 | DISCHARGE SUMMARY ---
PRINCIPAL DIAGNOSIS: Acute cholecystitis. PROCEDURE: The patient underwent laparoscopic cholecystectomy with drain placement. HISTORY OF PRESENT ILLNESS: The patient is a 71-year-old male, presenting to the Emergency Room with acute abdominal pain and on workup, found to have evidence of acute cholecystitis. HOSPITAL COURSE: On 02/05/2017, the patient was taken to the operating room, where he underwent laparoscopic cholecystectomy, which he tolerated very well. He did have severe acute cholecystitis with hydrops. The patient has done quite well and is ready for discharge home to be followed in the surgical clinic within 2-3 days for drain removal.
[2017-02-07 07:56] VITALS: BP 135/81; PULSE 56; TEMP 37; O2SAT 95
--- NOTE | 2017-02-07 13:43 | Family Medicine Progress Note ---
Progress Note Date of Service Feb 07, 2017. Subjective Pt evaluation today including: conversation w/ patient, physical exam, chart review, lab review The patient was seen and examined at bedside. No acute overnight events. Drain is in place and only scant blood is in the drain. Patient is resting comfortably in bed. Denies having any pain. Eating and urinating well. Plan of care was described to the patient and all questions were answered. ROS: No chest pain, no SOB, no dyspnea on exertion, no palpitations, no fevers, no chills, no nausea, no vomiting, no diarrhea, no dysuria, no rash. Constitutional: No fever, No chills, No sweats Respiratory: No cough, No sputum Cardiovascular: No chest pain Abdomen: No pain, No nausea, No vomiting, No diarrhea Male : + incontinence ((resolved)), No dysuria, No urinary frequency Neurologic: No memory loss, No weakness, No numbness/tingling Psychiatric: No depression symptoms Skin: No rash Objective Physical Exam Notes: General Appearance: WD/WN, no apparent distress Neck: no adenopathy Respiratory/Chest: chest non-tender, lungs clear, normal breath sounds, no respiratory distress, no accessory muscle use Cardiovascular: regular rate, rhythm, no edema, no gallop, no JVD, no murmur Abdomen: non tender, soft, no organomegaly, no pulsatile mass, + pertinent finding (Drain in place over RUQ, non tender surgical site, no signs of acute abdomen (no rebound)) Extremities: normal range of motion, non-tender, normal inspection, no pedal edema, no calf tenderness Neurologic/Psychiatric: alert, normal mood/affect, oriented x 3 Assessment and Plan 71M with a PMHx of GERD, hernia and HTN p/w acute cholecystitis. s/p Cholecystectomy by Dr. Agustin. Post Op Day #2. Patient is doing well. Follow up arranged with Dr. Agustin on Thursday February 09, 2017. Cholecystectomy - Doing well, drain in place draining scant amounts of blood, no signs of acute abdomen. - continue Unasyn 1.5g TID IV, will need Abx on DC, defer to Dr. Agustin's recommendation. - continue to hold home med Aspirin 81 MG PO DAILY, OK to resume on discharge. JARAMILLO - Continue Ibuprofen 600mg TID PRN HTN - Continue Losartan Potassium (Cozaar), 25 MG PO DAILY GERD - continue Pantoprazole (Protonix), 40 MG PO DAILY DVT Proph SCDS FULL CODE Resident Physician Supervision Note: case discussed w dr callejas. chart reviewed. pt discharged prior to my seeing him. agree w above Documented By: Canelo Tillman Resident Involvement: Resident Care Provided Care Provided: Adult Hospital Medicine
== END 2017-02-07 09:50 | disposition home or self-care (01) | DRG 418 ==
LOC: C.EDB 11:59 → C.MSW 17:48 → ENRESERV 18:21
PROVIDERS: ADMIT Surgery; ATTEND Surgery
PROC: 0FT44ZZ Resection of Gallbladder, Percutaneous Endoscopic Approach (ICD-10-PCS; principal; 2017-02-05 11:00)
DX: K80.00 Calculus of gallbladder with acute cholecystitis without obstruction (principal); K82.1 Hydrops of gallbladder; R51 Headache; I10 Essential (primary) hypertension; K21.9 Gastro-esophageal reflux disease without esophagitis; K44.9 Diaphragmatic hernia without obstruction or gangrene; N40.1 Benign prostatic hyperplasia with lower urinary tract symptoms; R35.0 Frequency of micturition; R31.29 Other microscopic hematuria; D73.89 Other diseases of spleen; Z79.82 Long term (current) use of aspirin; Z79.899 Other long term (current) drug therapy; Z87.891 Personal history of nicotine dependence

== ENCOUNTER → 2017-07-24 | Outpatient (CLI) | payer OTHER ==
[~2017-07-24] MED LIST: ASPI81TA28 PO; HYDR-5688 PO; LOSA1TAB PO; PANT40TA PO
== END | disposition home or self-care (01) ==
LOC: C.LABSPEC 17:00
PROVIDERS: ATTEND Podiatrist Primary Podiatric Medicine
DX: B35.1 Tinea unguium (principal)

== ENCOUNTER → 2017-08-03 | Outpatient (CLI) | payer OTHER ==
[~2017-08-03] MED LIST changes: +OPTIRAY 320 IV PRN
--- NOTE | 2017-08-03 09:44 | DIAGNOSTIC IMAGING REPORT ---
ABDOMEN CT WITH IV CONTRAST CT DOSE: 326.66 mGy.cm HISTORY: Abnormal spleen. Follow-up. TECHNIQUE: Multiaxial CT images of the abdomen were performed following the use of intravenous contrast. A dose lowering technique was utilized adhering to the principles of ALARA. COMPARISON STUDY: Abdomen and pelvis CTA 02/05/2017. FINDINGS: The lung bases are clear. No pneumoperitoneum. No pneumatosis. No suspicious lytic or blastic osseous lesions. There again noted multiple scattered hypodense lesions seen throughout the liver. Dominant lesion within the left hepatic lobe measures 2 cm. These likely represent cysts. The gallbladder surgically absent. The pancreas, adrenal glands, and kidneys are within normal limits. No hydronephrosis. No retroperitoneal lymphadenopathy. Normal caliber abdominal aorta. The visualized loops of bowel show no wall thickening or obstruction. Colonic diverticulosis. Degenerative changes within the lumbar spine. The splenic dome lesion is difficult to identify on this study due to the delayed contrast and homogeneous enhancement with the spleen. However, this appears to remain stable in size measuring approximately 2.7 cm. IMPRESSION: The splenic dome lesion is difficult to identify on this study due to the delayed contrast and homogeneous enhancement with the spleen. However, this appears to remain stable in size measuring approximately 2.7 cm. Although technically indeterminate, statistically this represents a benign hemangioma or hamartoma. Electronically signed by: Talha Headley M.D. 08/03/2017 9:43 AM Dictated Date/Time: 08/03/2017 9:35 AM
== END | disposition home or self-care (01) ==
LOC: C.CTS 08:40
PROVIDERS: ATTEND Family Medicine
DX: D73.89 Other diseases of spleen (principal)

== ENCOUNTER → 2017-09-05 | Outpatient (CLI) | payer OTHER ==
[~2017-09-05] MED LIST changes: -HYDR-5688 PO; -OPTIRAY 320 IV PRN
--- NOTE | 2017-09-05 15:29 | DIAGNOSTIC IMAGING REPORT ---
ORBITS/SELLA/TEMP WITHOUT CLINICAL HISTORY: 72 years-old Male presenting with ASYMMETRICAL HEARING LOSS OF L EAR. TECHNIQUE: Multidetector CT of the temporal bones was performed without the use of intravenous contrast. IV contrast: None. A dose lowering technique was used consistent with the principles of ALARA (as low as reasonably achievable). COMPARISON: None. CT DOSE (mGy.cm): The estimated cumulative dose is 396.82 mGycm. FINDINGS: [employer] topogram: Unremarkable. Bilateral external auditory canals clear. Tympanic membranes thin and barely visible. Middle ear ossicles intact. Mastoid air cells clear bilaterally. Bony labyrinths normal bilaterally. No abnormal sclerosis or osteolysis of the bony labyrinths. The bony internal auditory canals are normal. No enlargement of the vestibular aqueducts. No dehiscence of the jugular bulbs. No dehiscence of the carotid canals. No effacement of the fossae of Rosenmuller. Nasopharynx patent though with minimal aerated secretions. Upper cervical spine and skull base intact. Minimal mucosal thickening in the right posterior ethmoid air cells. IMPRESSION: Normal CT examination of the temporal bones. Electronically signed by: Jamin Luciano M.D. 09/05/2017 3:27 PM Dictated Date/Time: 09/05/2017 3:22 PM
== END | disposition home or self-care (01) ==
LOC: C.CTS 14:34
PROVIDERS: ATTEND Specialist
DX: H91.8X2 Other specified hearing loss, left ear (principal)